=== PATIENT | female | born 1945 | race Caucasian/White ===

== ENCOUNTER 2020-06-16 11:52 | Inpatient (IN) ==
[2020-06-16] MEDS ORDERED: D5% in Water 1,000 ML IVC PRN (16:47)
[2020-06-16] MEDS ORDERED: *HR* Dextrose 50 % in Water (Vial) 50 ML VIAL IVP PRN (16:47)
[2020-06-16] MEDS ORDERED: Dextrose Gel 15 GM/37.5 ML TUBE PO PRN ×2 (16:47)
[2020-06-16] MEDS: Insulin LISPRO 300 UNITS/3 ML VIAL SQ SCH ×2 (17:37→21:25)
[2020-06-16] MEDS: *HR* Glimepiride 2 MG TABLET PO SCH (17:38)
[2020-06-16] MEDS: *HR* Warfarin 5 MG TABLET PO SCH (17:38)
[2020-06-16 19:22] LABS: Basophils # 0.1 K/mcL (0.0-0.2); Basophils % 0.9 %; Eosinophils # 0.2 K/mcL (0.0-0.6); Hematocrit 32.8 % (35.3-44.9); Hemoglobin 10.3 g/dL (11.5-15.4); Immature Granulocytes % 0.8 % (0-4); Lymphocytes # 2.1 K/mcL (0.6-4.6); Lymphocytes % 19.7 %; Mean Corpuscular HGB Conc 31.4 g/dL (31.6-35.5); Mean Corpuscular Hemoglobin 29.8 pg (28.0-33.3); Mean Corpuscular Volume 94.8 fL (83.0-100.0); Mean Platelet Volume 10.3 fL (9.4-12.4); Monocytes # 1.5 K/mcL (0.0-1.3); Monocytes % 14.6 %; Neutrophils # 6.5 K/mcL (1.6-8.9); Platelet Count 437 K/mcL (140-400); Red Blood Count 3.46 M/mcL (3.82-4.97); Red Cell Distribution Width 16.1 % (11.5-14.5); White Blood Count 10.5 K/mcL (4.3-11.1)
[2020-06-16] MEDS: Budesonide/Formoterol 80/4.5 1 PUFF INH IH SCH (19:32)
[2020-06-16 19:34] LABS: Alanine Aminotransferase 45 Units/L (7-52); Albumin 2.7 g/dL (3.5-5.7); Albumin/Globulin Ratio 0.8 (1.1-2.2); Alkaline Phosphatase 126 Units/L (34-104); Aspartate Amino Transferase 25 Units/L (13-39); BUN/Creatinine Ratio 29 (6-26); Bilirubin,Total 0.5 mg/dL (0.3-1.0); Blood Urea Nitrogen 30 mg/dL (8-23); Calcium 9.1 mg/dL (8.6-10.3); Carbon Dioxide 26 mEq/L (23-29); Chloride 100 mEq/L (98-107); Globulin 3.2 g/dL (2.4-3.5); Glucose 176 mg/dL (70-105); Osmolality,Calculated 286 (280-300); Potassium 4.9 mEq/L (3.5-5.1); Sodium 133 mEq/L (136-145); Total Protein 5.9 g/dL (6.4-8.9); eGFR For African Americans > 60 (> 60); eGFR For Non-African Americans 51 (> 60)
[2020-06-16] MEDS ORDERED: CIDER VINEGAR 300 MG PO SCH (21:00)
[2020-06-16] MEDS ORDERED: Insulin DETEMIR 100 UNIT/ML per UNIT SQ ONE (21:00)
[2020-06-16] MEDS: DilTIAZem CD (24hr) 120 MG CAP.ER.24H PO SCH (21:22)
[2020-06-16] MEDS: Doxycycline 100 MG CAPSULE PO SCH (21:22)
[2020-06-16] MEDS: Famotidine 20 MG TABLET PO SCH (21:23)
[2020-06-16] MEDS: Metoprolol XL (24 HR) Succ 25 MG TAB.ER.24H PO SCH (21:23)
[2020-06-16] MEDS: allopurinoL 100 MG TABLET PO SCH (21:24)
[2020-06-16] MEDS: Zinc Acetate [Galzin] 50 MG PO SCH (21:33)
[2020-06-17 06:00] LABS: Basophils # 0.1 K/mcL (0.0-0.2); Basophils % 1.3 %; Eosinophils # 0.2 K/mcL (0.0-0.6); Eosinophils % 2.1 %; Hematocrit 33.7 % (35.3-44.9); Hemoglobin 10.5 g/dL (11.5-15.4); Immature Granulocytes % 0.8 % (0-4); Lymphocytes # 2.5 K/mcL (0.6-4.6); Lymphocytes % 24.3 %; Mean Corpuscular HGB Conc 31.2 g/dL (31.6-35.5); Mean Corpuscular Hemoglobin 29.8 pg (28.0-33.3); Mean Corpuscular Volume 95.7 fL (83.0-100.0); Mean Platelet Volume 10.5 fL (9.4-12.4); Monocytes # 1.6 K/mcL (0.0-1.3); Neutrophils # 5.9 K/mcL (1.6-8.9); Platelet Count 488 K/mcL (140-400); Red Blood Count 3.52 M/mcL (3.82-4.97); Red Cell Distribution Width 16.2 % (11.5-14.5); Segmented Neutrophils % 56.5 %; White Blood Count 10.4 K/mcL (4.3-11.1)
[2020-06-17 06:14] LABS: INR 1.7; Prothrombin Time 19.5 Seconds (9.4-12.1)
[2020-06-17 06:17] LABS: Activated Partial Thrombo Time 38.5 Seconds (26.0-36.0)
[2020-06-17 06:24] LABS: BUN/Creatinine Ratio 30 (6-26); Blood Urea Nitrogen 26 mg/dL (8-23); Calcium 9.2 mg/dL (8.6-10.3); Carbon Dioxide 27 mEq/L (23-29); Chloride 102 mEq/L (98-107); Glucose 78 mg/dL (70-105); Osmolality,Calculated 284 (280-300); Potassium 4.6 mEq/L (3.5-5.1); Sodium 135 mEq/L (136-145); eGFR For African Americans > 60 (> 60); eGFR For Non-African Americans > 60 (> 60)
[2020-06-17 07:14] LABS: Bilirubin,Urine Negative (Negative); Blood,Urine Trace-intact (Negative); Clarity,Urine Clear (Clear); Color,Urine Yellow (Yellow); Glucose,Urine (UA) Normal (Normal); Ketones,Urine Negative (Negative); Leukocyte Esterase,Urine Negative (Negative); Nitrite,Urine Negative (Negative); Protein,Urine Negative (Neg-Trace); Urobilinogen,Urine Normal (Normal)
[2020-06-17 07:16] LABS: RBC,Urine 0-3 per hpf (0-3)
[2020-06-17 07:17] LABS: Squamous Epithelial Cell,Urine Few per hpf (None-Few); WBC,Urine 0-3 per hpf (0-3)
[2020-06-17] MEDS: Insulin LISPRO 300 UNITS/3 ML VIAL SQ SCH ×4 (08:21→21:24)
[2020-06-17] MEDS: *HR* Digoxin 0.125 MG TABLET PO SCH (08:22)
[2020-06-17] MEDS: DilTIAZem CD (24hr) 120 MG CAP.ER.24H PO SCH ×2 (08:22→20:07)
[2020-06-17] MEDS: allopurinoL 100 MG TABLET PO SCH ×2 (08:22→20:07)
[2020-06-17] MEDS: *HR* Glimepiride 2 MG TABLET PO SCH ×2 (08:22→17:54)
[2020-06-17] MEDS: Metoprolol XL (24 HR) Succ 25 MG TAB.ER.24H PO SCH ×2 (08:22→21:36)
[2020-06-17] MEDS: Cholecalciferol (D-3) 1,000 UNIT (25MCG) TABLET PO SCH (08:22)
[2020-06-17] MEDS: Doxycycline 100 MG CAPSULE PO SCH ×2 (08:22→20:07)
[2020-06-17] MEDS: Famotidine 20 MG TABLET PO SCH ×2 (08:22→20:07)
[2020-06-17] MEDS: Zinc Acetate [Galzin] 50 MG PO SCH ×2 (08:23→21:27)
[2020-06-17] MEDS: Liraglutide [Victoza 2-Pak] 1.2 MG SQ SCH (08:23)
[2020-06-17] MEDS: Budesonide/Formoterol 80/4.5 1 PUFF INH IH SCH ×2 (10:04→22:30)
[2020-06-17] MEDS: *HR* Warfarin 5 MG TABLET PO SCH (17:54)
[2020-06-17] MEDS: Insulin DETEMIR 100 UNIT/ML X5UNITS SQ SCH (21:27)
[2020-06-18] MEDS: Insulin LISPRO 300 UNITS/3 ML VIAL SQ SCH ×4 (08:52→22:05)
[2020-06-18] MEDS: *HR* Digoxin 0.125 MG TABLET PO SCH (09:47)
[2020-06-18] MEDS: Cholecalciferol (D-3) 1,000 UNIT (25MCG) TABLET PO SCH (09:47)
[2020-06-18] MEDS: Famotidine 20 MG TABLET PO SCH ×2 (09:47→22:06)
[2020-06-18] MEDS: allopurinoL 100 MG TABLET PO SCH ×2 (09:48→22:06)
[2020-06-18] MEDS: DilTIAZem CD (24hr) 120 MG CAP.ER.24H PO SCH ×2 (09:48→22:05)
[2020-06-18] MEDS: Budesonide/Formoterol 80/4.5 1 PUFF INH IH SCH ×2 (09:48→21:47)
[2020-06-18] MEDS: Liraglutide [Victoza 2-Pak] 1.2 MG SQ SCH (09:48)
[2020-06-18] MEDS: Doxycycline 100 MG CAPSULE PO SCH ×2 (09:48→22:05)
[2020-06-18] MEDS: Metoprolol XL (24 HR) Succ 25 MG TAB.ER.24H PO SCH ×2 (09:48→22:06)
[2020-06-18] MEDS: *HR* Glimepiride 2 MG TABLET PO SCH ×2 (09:48→17:12)
[2020-06-18] MEDS: Zinc Acetate [Galzin] 50 MG PO SCH ×2 (09:48→22:06)
[2020-06-18] MEDS: *HR* Warfarin 5 MG TABLET PO SCH (17:12)
[2020-06-18] MEDS: Insulin DETEMIR 100 UNIT/ML X5UNITS SQ SCH (22:05)
[2020-06-19 05:16] LABS: INR 3.1; Prothrombin Time 35.8 Seconds (9.4-12.1)
[2020-06-19] MEDS: Liraglutide [Victoza 2-Pak] 1.2 MG SQ SCH (07:35)
[2020-06-19] MEDS: *HR* Glimepiride 2 MG TABLET PO SCH ×2 (07:35→17:04)
[2020-06-19] MEDS: Zinc Acetate [Galzin] 50 MG PO SCH ×2 (07:35→19:55)
[2020-06-19] MEDS: Insulin LISPRO 300 UNITS/3 ML VIAL SQ SCH ×4 (07:35→19:54)
[2020-06-19] MEDS: DilTIAZem CD (24hr) 120 MG CAP.ER.24H PO SCH ×2 (09:34→19:54)
[2020-06-19] MEDS: Famotidine 20 MG TABLET PO SCH ×2 (09:34→19:53)
[2020-06-19] MEDS: *HR* Digoxin 0.125 MG TABLET PO SCH (09:34)
[2020-06-19] MEDS: Cholecalciferol (D-3) 1,000 UNIT (25MCG) TABLET PO SCH (09:34)
[2020-06-19] MEDS: Metoprolol XL (24 HR) Succ 25 MG TAB.ER.24H PO SCH ×2 (09:34→19:54)
[2020-06-19] MEDS: Budesonide/Formoterol 80/4.5 1 PUFF INH IH SCH ×2 (09:38→23:22)
[2020-06-19] MEDS: allopurinoL 100 MG TABLET PO SCH ×2 (09:40→19:54)
[2020-06-19] MEDS ORDERED: Warfarin perPT PO PRN (18:00)
[2020-06-19] MEDS: Insulin DETEMIR 100 UNIT/ML X5UNITS SQ SCH (19:59)
[2020-06-20 04:44] LABS: Basophils # 0.1 K/mcL (0.0-0.2); Basophils % 0.8 %; Eosinophils # 0.3 K/mcL (0.0-0.6); Eosinophils % 2.3 %; Hematocrit 34.1 % (35.3-44.9); Hemoglobin 10.5 g/dL (11.5-15.4); Immature Granulocytes % 0.5 % (0-4); Lymphocytes # 1.9 K/mcL (0.6-4.6); Lymphocytes % 17.3 %; Mean Corpuscular HGB Conc 30.8 g/dL (31.6-35.5); Mean Corpuscular Hemoglobin 29.5 pg (28.0-33.3); Mean Corpuscular Volume 95.8 fL (83.0-100.0); Mean Platelet Volume 9.9 fL (9.4-12.4); Monocytes # 1.7 K/mcL (0.0-1.3); Monocytes % 15.4 %; Platelet Count 480 K/mcL (140-400); Red Blood Count 3.56 M/mcL (3.82-4.97); Segmented Neutrophils % 63.7 %
[2020-06-20 04:49] LABS: Prothrombin Time 34.5 Seconds (9.4-12.1)
[2020-06-20 05:02] LABS: BUN/Creatinine Ratio 26 (6-26); Blood Urea Nitrogen 21 mg/dL (8-23); Carbon Dioxide 27 mEq/L (23-29); Chloride 103 mEq/L (98-107); Glucose 51 mg/dL (70-105); Osmolality,Calculated 282 (280-300); Potassium 4.5 mEq/L (3.5-5.1); Sodium 136 mEq/L (136-145); eGFR For African Americans > 60 (> 60); eGFR For Non-African Americans > 60 (> 60)
[2020-06-20] MEDS: allopurinoL 100 MG TABLET PO SCH ×2 (08:21→20:56)
[2020-06-20] MEDS: Zinc Acetate [Galzin] 50 MG PO SCH ×2 (08:21→22:36)
[2020-06-20] MEDS: Cholecalciferol (D-3) 1,000 UNIT (25MCG) TABLET PO SCH (08:21)
[2020-06-20] MEDS: *HR* Digoxin 0.125 MG TABLET PO SCH (08:21)
[2020-06-20] MEDS: Famotidine 20 MG TABLET PO SCH ×2 (08:21→20:55)
[2020-06-20] MEDS: *HR* Glimepiride 2 MG TABLET PO SCH ×2 (08:21→17:09)
[2020-06-20] MEDS: Insulin LISPRO 300 UNITS/3 ML VIAL SQ SCH ×4 (08:21→20:56)
[2020-06-20] MEDS: DilTIAZem CD (24hr) 120 MG CAP.ER.24H PO SCH ×2 (08:21→20:55)
[2020-06-20] MEDS: Liraglutide [Victoza 2-Pak] 1.2 MG SQ SCH (08:21)
[2020-06-20] MEDS: Metoprolol XL (24 HR) Succ 25 MG TAB.ER.24H PO SCH ×2 (08:21→20:55)
[2020-06-20] MEDS: Budesonide/Formoterol 80/4.5 1 PUFF INH IH SCH ×2 (10:07→20:58)
[2020-06-20] MEDS ORDERED: *HR* Warfarin 2 MG TABLET PO ONE (18:00)
[2020-06-20] MEDS ORDERED: *HR* Warfarin 2.5 MG TABLET PO SCH (18:00)
[2020-06-20] MEDS: Insulin DETEMIR 100 UNIT/ML X5UNITS SQ SCH (20:57)
[2020-06-21 04:39] LABS: INR 2.5; Prothrombin Time 28.2 Seconds (9.4-12.1)
[2020-06-21] MEDS: *HR* Digoxin 0.125 MG TABLET PO SCH (08:32)
[2020-06-21] MEDS: Metoprolol XL (24 HR) Succ 25 MG TAB.ER.24H PO SCH ×2 (08:32→22:45)
[2020-06-21] MEDS: Famotidine 20 MG TABLET PO SCH ×2 (08:32→22:45)
[2020-06-21] MEDS: Cholecalciferol (D-3) 1,000 UNIT (25MCG) TABLET PO SCH (08:33)
[2020-06-21] MEDS: DilTIAZem CD (24hr) 120 MG CAP.ER.24H PO SCH ×2 (08:33→22:45)
[2020-06-21] MEDS: *HR* Glimepiride 2 MG TABLET PO SCH ×2 (08:33→17:10)
[2020-06-21] MEDS: Zinc Acetate [Galzin] 50 MG PO SCH (08:33)
[2020-06-21] MEDS: allopurinoL 100 MG TABLET PO SCH ×2 (08:33→22:45)
[2020-06-21] MEDS: Liraglutide [Victoza 2-Pak] 1.2 MG SQ SCH (08:33)
[2020-06-21] MEDS: Insulin LISPRO 300 UNITS/3 ML VIAL SQ SCH ×4 (08:33→22:45)
[2020-06-21] MEDS: Budesonide/Formoterol 80/4.5 1 PUFF INH IH SCH ×2 (09:20→21:16)
[2020-06-21 16:53] LABS: Basophils # 0.1 K/mcL (0.0-0.2); Basophils % 0.5 %; Eosinophils # 0.1 K/mcL (0.0-0.6); Eosinophils % 0.9 %; Hemoglobin 11.1 g/dL (11.5-15.4); Immature Granulocytes % 0.7 % (0-4); Lymphocytes % 13.7 %; Mean Corpuscular HGB Conc 30.8 g/dL (31.6-35.5); Mean Corpuscular Hemoglobin 29.9 pg (28.0-33.3); Mean Platelet Volume 9.7 fL (9.4-12.4); Monocytes # 2.2 K/mcL (0.0-1.3); Monocytes % 15.2 %; Neutrophils # 10.1 K/mcL (1.6-8.9); Platelet Count 550 K/mcL (140-400); Red Blood Count 3.71 M/mcL (3.82-4.97); Red Cell Distribution Width 15.9 % (11.5-14.5); White Blood Count 14.6 K/mcL (4.3-11.1)
[2020-06-21 17:09] LABS: BUN/Creatinine Ratio 21 (6-26); Blood Urea Nitrogen 18 mg/dL (8-23); Calcium 8.9 mg/dL (8.6-10.3); Carbon Dioxide 30 mEq/L (23-29); Chloride 99 mEq/L (98-107); Glucose 177 mg/dL (70-105); Osmolality,Calculated 284 (280-300); Potassium 4.7 mEq/L (3.5-5.1); Sodium 134 mEq/L (136-145); eGFR For African Americans > 60 (> 60); eGFR For Non-African Americans > 60 (> 60)
[2020-06-21] MEDS ORDERED: *HR* Warfarin 5 MG TABLET PO ONE (18:00)
[2020-06-21 20:51] LABS: Bilirubin,Urine Negative (Negative); Blood,Urine Negative (Negative); Clarity,Urine Clear (Clear); Color,Urine Yellow (Yellow); Glucose,Urine (UA) Normal (Normal); Ketones,Urine Negative (Negative); Leukocyte Esterase,Urine Negative (Negative); Nitrite,Urine Negative (Negative); Protein,Urine 100 mg/dL (Neg-Trace); Specific Gravity,Urine 1.025 (1.010-1.025); Urobilinogen,Urine Normal (Normal)
[2020-06-21 20:59] LABS: Budding Yeast,Urine Moderate per hpf (None Seen); Hyaline Casts,Urine Few per lpf (None Seen); RBC,Urine 0-3 per hpf (0-3); Squamous Epithelial Cell,Urine Few per hpf (None-Few)
[2020-06-21] MEDS: Insulin DETEMIR 100 UNIT/ML X5UNITS SQ SCH (22:45)
[2020-06-21] MEDS: Doxycycline 100 MG CAPSULE PO SCH (22:45)
[2020-06-22] MEDS: Zinc Acetate [Galzin] 50 MG PO SCH ×3 (01:18→22:17)
[2020-06-22 06:13] LABS: Basophils # 0.1 K/mcL (0.0-0.2); Basophils % 0.5 %; Eosinophils # 0.1 K/mcL (0.0-0.6); Eosinophils % 0.5 %; Hematocrit 33.1 % (35.3-44.9); Hemoglobin 10.2 g/dL (11.5-15.4); Immature Granulocytes % 0.8 % (0-4); Lymphocytes % 13.6 %; Mean Corpuscular HGB Conc 30.8 g/dL (31.6-35.5); Mean Corpuscular Hemoglobin 29.5 pg (28.0-33.3); Mean Corpuscular Volume 95.7 fL (83.0-100.0); Mean Platelet Volume 9.9 fL (9.4-12.4); Monocytes # 2.2 K/mcL (0.0-1.3); Platelet Count 507 K/mcL (140-400); Red Blood Count 3.46 M/mcL (3.82-4.97); Red Cell Distribution Width 15.9 % (11.5-14.5); Segmented Neutrophils % 69.6 %; White Blood Count 14.9 K/mcL (4.3-11.1)
[2020-06-22 06:14] LABS: Neutrophils # 10.4 K/mcL (1.6-8.9)
[2020-06-22 06:15] LABS: Prothrombin Time 23.1 Seconds (9.4-12.1)
[2020-06-22] MEDS: Insulin LISPRO 300 UNITS/3 ML VIAL SQ SCH ×4 (07:55→22:05)
[2020-06-22] MEDS: DilTIAZem CD (24hr) 120 MG CAP.ER.24H PO SCH ×2 (08:35→22:04)
[2020-06-22] MEDS: Doxycycline 100 MG CAPSULE PO SCH (08:35)
[2020-06-22] MEDS: Famotidine 20 MG TABLET PO SCH ×2 (08:35→22:04)
[2020-06-22] MEDS: Liraglutide [Victoza 2-Pak] 1.2 MG SQ SCH (08:35)
[2020-06-22] MEDS: Cholecalciferol (D-3) 1,000 UNIT (25MCG) TABLET PO SCH (08:35)
[2020-06-22] MEDS: Metoprolol XL (24 HR) Succ 25 MG TAB.ER.24H PO SCH ×2 (08:35→22:04)
[2020-06-22] MEDS: allopurinoL 100 MG TABLET PO SCH ×2 (08:35→22:04)
[2020-06-22] MEDS: *HR* Digoxin 0.125 MG TABLET PO SCH (08:36)
[2020-06-22] MEDS: *HR* Glimepiride 2 MG TABLET PO SCH ×2 (08:36→17:21)
[2020-06-22] MEDS: Budesonide/Formoterol 80/4.5 1 PUFF INH IH SCH ×2 (10:10→21:45)
[2020-06-22] MEDS: Acetaminophen 325 MG TABLET PO PRN ×2 (15:17→22:09)
[2020-06-22] MEDS: Ipratropium/Albuterol Neb 3 ML IH SCH ×2 (16:17→21:45)
[2020-06-22] MEDS ORDERED: *HR* Warfarin 3 MG TABLET PO ONE (18:00)
[2020-06-22] MEDS: 0.9 % Sodium Chloride 1,000 ML IVC SCH (18:03)
[2020-06-22] MEDS: Doxycycline 100 MG in 0.9 % Sodium Chloride Mini Bag 100 ML IVPB SCH (18:03)
[2020-06-22] MEDS: levoFLOXacin 750 MG/150 ML 750 MG/150 ML BAG IVPB SCH (19:34)
[2020-06-22] MEDS: Insulin DETEMIR 100 UNIT/ML X5UNITS SQ SCH (22:05)
[2020-06-23] MEDS: Ipratropium/Albuterol Neb 3 ML IH SCH ×4 (03:58→21:32)
[2020-06-23] MEDS: 0.9 % Sodium Chloride 1,000 ML IVC SCH ×2 (04:06→16:36)
[2020-06-23] MEDS: Doxycycline 100 MG in 0.9 % Sodium Chloride Mini Bag 100 ML IVPB SCH ×2 (05:09→17:29)
[2020-06-23 06:16] LABS: Hematocrit 32.3 % (35.3-44.9); Mean Corpuscular Hemoglobin 29.9 pg (28.0-33.3); Mean Corpuscular Volume 96.4 fL (83.0-100.0); Mean Platelet Volume 9.9 fL (9.4-12.4); Platelet Count 478 K/mcL (140-400); Red Blood Count 3.35 M/mcL (3.82-4.97); Red Cell Distribution Width 15.8 % (11.5-14.5)
[2020-06-23 06:22] LABS: INR 2.2; Prothrombin Time 25.4 Seconds (9.4-12.1)
[2020-06-23 06:33] LABS: Alanine Aminotransferase 19 Units/L (7-52); Albumin 2.6 g/dL (3.5-5.7); Albumin/Globulin Ratio 0.8 (1.1-2.2); Alkaline Phosphatase 112 Units/L (34-104); Aspartate Amino Transferase 11 Units/L (13-39); BUN/Creatinine Ratio 23 (6-26); Bilirubin,Total 0.4 mg/dL (0.3-1.0); Blood Urea Nitrogen 20 mg/dL (8-23); Calcium 8.9 mg/dL (8.6-10.3); Carbon Dioxide 28 mEq/L (23-29); Chloride 101 mEq/L (98-107); Globulin 3.2 g/dL (2.4-3.5); Glucose 46 mg/dL (70-105); Magnesium 1.5 mg/dL (1.6-2.6); Osmolality,Calculated 280 (280-300); Potassium 4.3 mEq/L (3.5-5.1); Sodium 135 mEq/L (136-145); Total Protein 5.8 g/dL (6.4-8.9); eGFR For African Americans > 60 (> 60); eGFR For Non-African Americans > 60 (> 60)
[2020-06-23] MEDS: Insulin LISPRO 300 UNITS/3 ML VIAL SQ SCH ×4 (07:30→20:09)
[2020-06-23] MEDS: *HR* Glimepiride 2 MG TABLET PO SCH ×2 (07:31→17:10)
[2020-06-23] MEDS: Liraglutide [Victoza 2-Pak] 1.2 MG SQ SCH (08:22)
[2020-06-23] MEDS: Zinc Acetate [Galzin] 50 MG PO SCH ×2 (08:22→20:11)
[2020-06-23] MEDS: Metoprolol XL (24 HR) Succ 25 MG TAB.ER.24H PO SCH ×2 (08:27→20:10)
[2020-06-23] MEDS: Famotidine 20 MG TABLET PO SCH ×2 (08:27→20:10)
[2020-06-23] MEDS: allopurinoL 100 MG TABLET PO SCH ×2 (08:27→20:10)
[2020-06-23] MEDS: DilTIAZem CD (24hr) 120 MG CAP.ER.24H PO SCH ×2 (08:28→20:10)
[2020-06-23] MEDS: Cholecalciferol (D-3) 1,000 UNIT (25MCG) TABLET PO SCH (08:28)
[2020-06-23] MEDS: *HR* Digoxin 0.125 MG TABLET PO SCH (08:28)
[2020-06-23] MEDS ORDERED: Fluconazole 100 MG TABLET PO SCH (09:00)
[2020-06-23] MEDS: Acetaminophen 325 MG TABLET PO PRN (09:14)
[2020-06-23] MEDS: Fluconazole 200 MG/100 ML 100 MG/50 ML BAG IVPB SCH (09:17)
[2020-06-23] MEDS: Budesonide/Formoterol 80/4.5 1 PUFF INH IH SCH ×2 (10:05→21:32)
[2020-06-23] MEDS ORDERED: 0.9 % Sodium Chloride 1,000 ML IVC SCH (16:22)
[2020-06-23] MEDS ORDERED: *HR* Warfarin 1 MG TABLET PO ONE (18:00)
[2020-06-23] MEDS: levoFLOXacin 750 MG/150 ML 750 MG/150 ML BAG IVPB SCH (18:50)
[2020-06-23] MEDS ORDERED: Insulin DETEMIR 100 UNIT/ML per UNIT SQ SCH (21:00)
[2020-06-24] MEDS: Ipratropium/Albuterol Neb 3 ML IH SCH ×4 (03:58→22:54)
[2020-06-24] MEDS: Doxycycline 100 MG in 0.9 % Sodium Chloride Mini Bag 100 ML IVPB SCH ×2 (05:22→17:40)
[2020-06-24] MEDS: Insulin LISPRO 300 UNITS/3 ML VIAL SQ SCH ×4 (07:44→20:26)
[2020-06-24] MEDS: Liraglutide [Victoza 2-Pak] 1.2 MG SQ SCH (08:38)
[2020-06-24] MEDS: Zinc Acetate [Galzin] 50 MG PO SCH ×2 (08:38→22:19)
[2020-06-24] MEDS: DilTIAZem CD (24hr) 120 MG CAP.ER.24H PO SCH ×2 (08:46→20:28)
[2020-06-24] MEDS: Cholecalciferol (D-3) 1,000 UNIT (25MCG) TABLET PO SCH (08:46)
[2020-06-24] MEDS: Famotidine 20 MG TABLET PO SCH ×2 (08:46→20:28)
[2020-06-24] MEDS: allopurinoL 100 MG TABLET PO SCH ×2 (08:46→20:29)
[2020-06-24] MEDS: Metoprolol XL (24 HR) Succ 25 MG TAB.ER.24H PO SCH ×2 (08:46→20:29)
[2020-06-24] MEDS: *HR* Digoxin 0.125 MG TABLET PO SCH (08:46)
[2020-06-24] MEDS: Fluconazole 200 MG/100 ML 100 MG/50 ML BAG IVPB SCH (08:47)
[2020-06-24] MEDS: Budesonide/Formoterol 80/4.5 1 PUFF INH IH SCH ×2 (10:23→22:54)
[2020-06-24 10:34] LABS: Hematocrit 31.7 % (35.3-44.9); Hemoglobin 9.8 g/dL (11.5-15.4); Mean Corpuscular HGB Conc 30.9 g/dL (31.6-35.5); Mean Corpuscular Hemoglobin 29.7 pg (28.0-33.3); Mean Corpuscular Volume 96.1 fL (83.0-100.0); Mean Platelet Volume 9.1 fL (9.4-12.4); Platelet Count 418 K/mcL (140-400); Red Cell Distribution Width 15.8 % (11.5-14.5); White Blood Count 8.1 K/mcL (4.3-11.1)
[2020-06-24 10:47] LABS: BUN/Creatinine Ratio 25 (6-26); Blood Urea Nitrogen 22 mg/dL (8-23); Calcium 8.7 mg/dL (8.6-10.3); Carbon Dioxide 28 mEq/L (23-29); Chloride 100 mEq/L (98-107); Glucose 87 mg/dL (70-105); Magnesium 1.6 mg/dL (1.6-2.6); Osmolality,Calculated 281 (280-300); Potassium 4.7 mEq/L (3.5-5.1); Sodium 134 mEq/L (136-145); eGFR For African Americans > 60 (> 60); eGFR For Non-African Americans > 60 (> 60)
[2020-06-24 11:04] LABS: INR 2.6; Prothrombin Time 29.4 Seconds (9.4-12.1)
[2020-06-24] MEDS ORDERED: *HR* Warfarin 2 MG TABLET PO ONE (18:00)
[2020-06-24] MEDS: levoFLOXacin 750 MG/150 ML 750 MG/150 ML BAG IVPB SCH (18:42)
[2020-06-24] MEDS: Insulin DETEMIR 100 UNIT/ML X5UNITS SQ SCH (21:11)
[2020-06-25 05:38] LABS: INR 2.4; Prothrombin Time 27.1 Seconds (9.4-12.1)
[2020-06-25] MEDS: Doxycycline 100 MG in 0.9 % Sodium Chloride Mini Bag 100 ML IVPB SCH (06:43)
[2020-06-25] MEDS: Ipratropium/Albuterol Neb 3 ML IH SCH ×4 (06:43→22:18)
[2020-06-25] MEDS: DilTIAZem CD (24hr) 120 MG CAP.ER.24H PO SCH ×2 (07:58→21:32)
[2020-06-25] MEDS: Cholecalciferol (D-3) 1,000 UNIT (25MCG) TABLET PO SCH (07:58)
[2020-06-25] MEDS: Famotidine 20 MG TABLET PO SCH ×2 (07:58→21:31)
[2020-06-25] MEDS: allopurinoL 100 MG TABLET PO SCH ×2 (07:58→21:31)
[2020-06-25] MEDS: Metoprolol XL (24 HR) Succ 25 MG TAB.ER.24H PO SCH ×2 (07:58→21:31)
[2020-06-25] MEDS: Liraglutide [Victoza 2-Pak] 1.2 MG SQ SCH (07:59)
[2020-06-25] MEDS: *HR* Digoxin 0.125 MG TABLET PO SCH (07:59)
[2020-06-25] MEDS: Zinc Acetate [Galzin] 50 MG PO SCH ×2 (07:59→21:44)
[2020-06-25] MEDS: Insulin LISPRO 300 UNITS/3 ML VIAL SQ SCH ×4 (07:59→21:33)
[2020-06-25] MEDS: Budesonide/Formoterol 80/4.5 1 PUFF INH IH SCH ×2 (08:58→22:18)
[2020-06-25] MEDS: Fluconazole 200 MG/100 ML 100 MG/50 ML BAG IVPB SCH (09:31)
[2020-06-25] MEDS: levoFLOXacin 750 MG TABLET PO SCH (17:15)
[2020-06-25] MEDS ORDERED: *HR* Warfarin 3 MG TABLET PO ONE (18:00)
[2020-06-25] MEDS: Doxycycline 100 MG CAPSULE PO SCH (21:30)
[2020-06-25] MEDS: Insulin DETEMIR 100 UNIT/ML X5UNITS SQ SCH (21:44)
[2020-06-26 05:27] LABS: INR 2.5; Prothrombin Time 28.1 Seconds (9.4-12.1)
[2020-06-26] MEDS: Ipratropium/Albuterol Neb 3 ML IH SCH ×4 (05:32→21:40)
[2020-06-26] MEDS: Budesonide/Formoterol 80/4.5 1 PUFF INH IH SCH ×2 (07:43→21:39)
[2020-06-26] MEDS: Insulin LISPRO 300 UNITS/3 ML VIAL SQ SCH ×4 (08:25→21:26)
[2020-06-26] MEDS: DilTIAZem CD (24hr) 120 MG CAP.ER.24H PO SCH ×2 (08:28→21:20)
[2020-06-26] MEDS: *HR* Digoxin 0.125 MG TABLET PO SCH (08:28)
[2020-06-26] MEDS: Doxycycline 100 MG CAPSULE PO SCH ×2 (08:28→21:20)
[2020-06-26] MEDS: Liraglutide [Victoza 2-Pak] 1.2 MG SQ SCH (08:28)
[2020-06-26] MEDS: Famotidine 20 MG TABLET PO SCH ×2 (08:28→21:19)
[2020-06-26] MEDS: allopurinoL 100 MG TABLET PO SCH ×2 (08:28→21:21)
[2020-06-26] MEDS: Fluconazole 200 MG/100 ML 100 MG/50 ML BAG IVPB SCH (08:28)
[2020-06-26] MEDS: Zinc Acetate [Galzin] 50 MG PO SCH ×2 (08:28→21:29)
[2020-06-26] MEDS: Metoprolol XL (24 HR) Succ 25 MG TAB.ER.24H PO SCH ×2 (08:28→21:20)
[2020-06-26] MEDS: Cholecalciferol (D-3) 1,000 UNIT (25MCG) TABLET PO SCH (08:28)
[2020-06-26] MEDS ORDERED: Bisacodyl 10 MG RECTAL SUPPOSITORY RC PRN (11:44)
[2020-06-26] MEDS ORDERED: Lactulose Oral Soln 20 GM/30 ML UDC PO PRN (11:44)
[2020-06-26] MEDS: polyethylene glycoL 3350 17 GM POWD.PACK PO SCH (12:19)
[2020-06-26] MEDS: Sennosides/Docusate Sodium TABLET PO SCH ×2 (12:19→21:20)
[2020-06-26] MEDS: levoFLOXacin 750 MG TABLET PO SCH (16:42)
[2020-06-26] MEDS ORDERED: *HR* Warfarin 3 MG TABLET PO ONE (18:00)
[2020-06-26] MEDS: Insulin DETEMIR 100 UNIT/ML X5UNITS SQ SCH (21:25)
[2020-06-27] MEDS: Ipratropium/Albuterol Neb 3 ML IH SCH ×4 (05:14→22:53)
[2020-06-27 06:13] LABS: Hemoglobin 10.2 g/dL (11.5-15.4); Mean Corpuscular HGB Conc 30.9 g/dL (31.6-35.5); Mean Corpuscular Hemoglobin 29.3 pg (28.0-33.3); Mean Corpuscular Volume 94.8 fL (83.0-100.0); Mean Platelet Volume 9.6 fL (9.4-12.4); Platelet Count 349 K/mcL (140-400); Red Blood Count 3.48 M/mcL (3.82-4.97); Red Cell Distribution Width 15.6 % (11.5-14.5); White Blood Count 6.9 K/mcL (4.3-11.1)
[2020-06-27 06:16] LABS: INR 2.5; Prothrombin Time 28.3 Seconds (9.4-12.1)
[2020-06-27 06:32] LABS: Alanine Aminotransferase 21 Units/L (7-52); Albumin 2.6 g/dL (3.5-5.7); Albumin/Globulin Ratio 0.9 (1.1-2.2); Alkaline Phosphatase 112 Units/L (34-104); Aspartate Amino Transferase 22 Units/L (13-39); BUN/Creatinine Ratio 39 (6-26); Bilirubin,Total 0.3 mg/dL (0.3-1.0); Blood Urea Nitrogen 28 mg/dL (8-23); Calcium 8.8 mg/dL (8.6-10.3); Carbon Dioxide 28 mEq/L (23-29); Chloride 100 mEq/L (98-107); Globulin 2.9 g/dL (2.4-3.5); Glucose 105 mg/dL (70-105); Magnesium 1.5 mg/dL (1.6-2.6); Osmolality,Calculated 284 (280-300); Potassium 4.5 mEq/L (3.5-5.1); Sodium 134 mEq/L (136-145); Total Protein 5.5 g/dL (6.4-8.9); eGFR For African Americans > 60 (> 60); eGFR For Non-African Americans > 60 (> 60)
[2020-06-27] MEDS: Insulin LISPRO 300 UNITS/3 ML VIAL SQ SCH ×4 (08:05→20:41)
[2020-06-27] MEDS: Liraglutide [Victoza 2-Pak] 1.2 MG SQ SCH (08:49)
[2020-06-27] MEDS: Zinc Acetate [Galzin] 50 MG PO SCH ×2 (08:49→22:12)
[2020-06-27] MEDS: DilTIAZem CD (24hr) 120 MG CAP.ER.24H PO SCH ×2 (08:58→20:40)
[2020-06-27] MEDS: polyethylene glycoL 3350 17 GM POWD.PACK PO SCH (08:58)
[2020-06-27] MEDS: Sennosides/Docusate Sodium TABLET PO SCH (08:58)
[2020-06-27] MEDS: Cholecalciferol (D-3) 1,000 UNIT (25MCG) TABLET PO SCH (08:59)
[2020-06-27] MEDS: Famotidine 20 MG TABLET PO SCH ×2 (08:59→20:40)
[2020-06-27] MEDS: Metoprolol XL (24 HR) Succ 25 MG TAB.ER.24H PO SCH ×2 (08:59→20:41)
[2020-06-27] MEDS: *HR* Digoxin 0.125 MG TABLET PO SCH (08:59)
[2020-06-27] MEDS: Fluconazole 100 MG TABLET PO SCH (08:59)
[2020-06-27] MEDS: Doxycycline 100 MG CAPSULE PO SCH ×2 (08:59→20:40)
[2020-06-27] MEDS: Budesonide/Formoterol 80/4.5 1 PUFF INH IH SCH ×2 (08:59→22:54)
[2020-06-27] MEDS: allopurinoL 100 MG TABLET PO SCH ×2 (08:59→20:41)
[2020-06-27] MEDS: Magnesium Oxide 400 MG TABLET PO SCH ×2 (10:44→20:41)
[2020-06-27] MEDS: levoFLOXacin 750 MG TABLET PO SCH (17:28)
[2020-06-27] MEDS ORDERED: Sennosides/Docusate Sodium TABLET PO PRN (17:46)
[2020-06-27] MEDS ORDERED: *HR* Warfarin 2.5 MG TABLET PO ONE (18:00)
[2020-06-27] MEDS: Insulin DETEMIR 100 UNIT/ML X5UNITS SQ SCH (20:41)
[2020-06-28] MEDS: Ipratropium/Albuterol Neb 3 ML IH SCH ×4 (02:42→21:29)
[2020-06-28 05:13] LABS: INR 3.4; Prothrombin Time 38.6 Seconds (9.4-12.1)
[2020-06-28] MEDS: Insulin LISPRO 300 UNITS/3 ML VIAL SQ SCH ×4 (07:52→20:39)
[2020-06-28] MEDS: Budesonide/Formoterol 80/4.5 1 PUFF INH IH SCH ×2 (09:52→21:29)
[2020-06-28] MEDS: DilTIAZem CD (24hr) 120 MG CAP.ER.24H PO SCH ×2 (10:02→18:42)
[2020-06-28] MEDS: Doxycycline 100 MG CAPSULE PO SCH ×2 (10:03→20:39)
[2020-06-28] MEDS: Metoprolol XL (24 HR) Succ 25 MG TAB.ER.24H PO SCH ×2 (10:03→20:39)
[2020-06-28] MEDS: Zinc Acetate [Galzin] 50 MG PO SCH ×2 (10:03→20:40)
[2020-06-28] MEDS: Magnesium Oxide 400 MG TABLET PO SCH ×2 (10:03→20:38)
[2020-06-28] MEDS: polyethylene glycoL 3350 17 GM POWD.PACK PO SCH (10:03)
[2020-06-28] MEDS: Fluconazole 100 MG TABLET PO SCH (10:03)
[2020-06-28] MEDS: *HR* Digoxin 0.125 MG TABLET PO SCH (10:03)
[2020-06-28] MEDS: Cholecalciferol (D-3) 1,000 UNIT (25MCG) TABLET PO SCH (10:03)
[2020-06-28] MEDS: allopurinoL 100 MG TABLET PO SCH ×2 (10:03→20:39)
[2020-06-28] MEDS: Liraglutide [Victoza 2-Pak] 1.2 MG SQ SCH (10:03)
[2020-06-28] MEDS: Famotidine 20 MG TABLET PO SCH ×2 (10:04→20:39)
[2020-06-28] MEDS: levoFLOXacin 750 MG TABLET PO SCH (17:40)
[2020-06-28] MEDS ORDERED: *HR* Warfarin 1 MG TABLET PO ONE (18:00)
[2020-06-28] MEDS: Insulin DETEMIR 100 UNIT/ML X5UNITS SQ SCH (20:39)
[2020-06-28] MEDS: Acetaminophen 325 MG TABLET PO PRN (22:22)
[2020-06-29] MEDS: Ipratropium/Albuterol Neb 3 ML IH SCH ×4 (04:05→21:39)
[2020-06-29 05:36] LABS: INR 3.3; Prothrombin Time 37.6 Seconds (9.4-12.1)
[2020-06-29] MEDS: Insulin LISPRO 300 UNITS/3 ML VIAL SQ SCH ×4 (07:28→21:20)
[2020-06-29] MEDS: Liraglutide [Victoza 2-Pak] 1.2 MG SQ SCH (08:58)
[2020-06-29] MEDS: Zinc Acetate [Galzin] 50 MG PO SCH ×2 (08:58→21:20)
[2020-06-29] MEDS: polyethylene glycoL 3350 17 GM POWD.PACK PO SCH (08:59)
[2020-06-29] MEDS: Famotidine 20 MG TABLET PO SCH ×2 (09:15→21:19)
[2020-06-29] MEDS: Cholecalciferol (D-3) 1,000 UNIT (25MCG) TABLET PO SCH (09:15)
[2020-06-29] MEDS: allopurinoL 100 MG TABLET PO SCH ×2 (09:15→21:19)
[2020-06-29] MEDS: DilTIAZem CD (24hr) 120 MG CAP.ER.24H PO SCH ×2 (09:15→21:19)
[2020-06-29] MEDS: Magnesium Oxide 400 MG TABLET PO SCH ×2 (09:15→21:19)
[2020-06-29] MEDS: Doxycycline 100 MG CAPSULE PO SCH ×2 (09:15→21:19)
[2020-06-29] MEDS: Fluconazole 100 MG TABLET PO SCH (09:15)
[2020-06-29] MEDS: Metoprolol XL (24 HR) Succ 25 MG TAB.ER.24H PO SCH ×2 (09:15→21:19)
[2020-06-29] MEDS: *HR* Digoxin 0.125 MG TABLET PO SCH (09:16)
[2020-06-29] MEDS: Budesonide/Formoterol 80/4.5 1 PUFF INH IH SCH ×2 (09:44→21:39)
[2020-06-29] MEDS: levoFLOXacin 750 MG TABLET PO SCH (16:07)
[2020-06-29] MEDS ORDERED: *HR* Warfarin 2 MG TABLET PO ONE (18:00)
[2020-06-29] MEDS: Acetaminophen 325 MG TABLET PO PRN (21:19)
[2020-06-29] MEDS: Insulin DETEMIR 100 UNIT/ML X5UNITS SQ SCH (21:20)
[2020-06-30] MEDS: Ipratropium/Albuterol Neb 3 ML IH SCH ×4 (04:05→21:48)
[2020-06-30 05:45] LABS: Prothrombin Time 34.6 Seconds (9.4-12.1)
[2020-06-30] MEDS: Insulin LISPRO 300 UNITS/3 ML VIAL SQ SCH ×4 (08:25→20:18)
[2020-06-30] MEDS: Zinc Acetate [Galzin] 50 MG PO SCH ×2 (08:26→20:32)
[2020-06-30] MEDS: Cholecalciferol (D-3) 1,000 UNIT (25MCG) TABLET PO SCH (08:31)
[2020-06-30] MEDS: Doxycycline 100 MG CAPSULE PO SCH ×2 (08:31→20:28)
[2020-06-30] MEDS: Famotidine 20 MG TABLET PO SCH ×2 (08:31→20:29)
[2020-06-30] MEDS: allopurinoL 100 MG TABLET PO SCH ×2 (08:31→20:29)
[2020-06-30] MEDS: Magnesium Oxide 400 MG TABLET PO SCH ×2 (08:32→20:29)
[2020-06-30] MEDS: Liraglutide [Victoza 2-Pak] 1.2 MG SQ SCH (08:32)
[2020-06-30] MEDS: *HR* Digoxin 0.125 MG TABLET PO SCH (08:32)
[2020-06-30] MEDS: Metoprolol XL (24 HR) Succ 25 MG TAB.ER.24H PO SCH ×2 (08:32→20:29)
[2020-06-30] MEDS: DilTIAZem CD (24hr) 120 MG CAP.ER.24H PO SCH ×2 (08:32→20:29)
[2020-06-30] MEDS: polyethylene glycoL 3350 17 GM POWD.PACK PO SCH (08:32)
[2020-06-30] MEDS: Budesonide/Formoterol 80/4.5 1 PUFF INH IH SCH ×2 (10:26→21:48)
[2020-06-30] MEDS: levoFLOXacin 750 MG TABLET PO SCH (17:54)
[2020-06-30] MEDS ORDERED: *HR* Warfarin 1 MG TABLET PO ONE (18:00)
[2020-06-30] MEDS: Acetaminophen 325 MG TABLET PO PRN (20:28)
[2020-06-30] MEDS: Insulin DETEMIR 100 UNIT/ML X5UNITS SQ SCH (20:30)
[2020-07-01] MEDS: Acetaminophen 325 MG TABLET PO PRN ×3 (03:44→17:33)
[2020-07-01] MEDS: Ipratropium/Albuterol Neb 3 ML IH SCH ×4 (03:45→22:11)
[2020-07-01 05:36] LABS: INR 3.5; Prothrombin Time 39.8 Seconds (9.4-12.1)
[2020-07-01] MEDS: Insulin LISPRO 300 UNITS/3 ML VIAL SQ SCH ×4 (07:33→23:55)
[2020-07-01] MEDS: Budesonide/Formoterol 80/4.5 1 PUFF INH IH SCH ×2 (08:51→22:11)
[2020-07-01] MEDS: Magnesium Oxide 400 MG TABLET PO SCH ×2 (09:26→21:05)
[2020-07-01] MEDS: Metoprolol XL (24 HR) Succ 25 MG TAB.ER.24H PO SCH ×2 (09:27→21:06)
[2020-07-01] MEDS: allopurinoL 100 MG TABLET PO SCH ×2 (09:27→21:05)
[2020-07-01] MEDS: *HR* Digoxin 0.125 MG TABLET PO SCH (09:27)
[2020-07-01] MEDS: DilTIAZem CD (24hr) 120 MG CAP.ER.24H PO SCH ×2 (09:27→21:06)
[2020-07-01] MEDS: Cholecalciferol (D-3) 1,000 UNIT (25MCG) TABLET PO SCH (09:27)
[2020-07-01] MEDS: Doxycycline 100 MG CAPSULE PO SCH ×2 (09:27→21:05)
[2020-07-01] MEDS: Famotidine 20 MG TABLET PO SCH ×2 (09:27→21:05)
[2020-07-01] MEDS: polyethylene glycoL 3350 17 GM POWD.PACK PO SCH (09:28)
[2020-07-01] MEDS: Zinc Acetate [Galzin] 50 MG PO SCH ×2 (09:33→23:56)
[2020-07-01] MEDS: Liraglutide [Victoza 2-Pak] 1.2 MG SQ SCH (09:33)
[2020-07-01] MEDS: levoFLOXacin 750 MG TABLET PO SCH (17:28)
[2020-07-01] MEDS: Insulin DETEMIR 100 UNIT/ML X5UNITS SQ SCH (21:07)
[2020-07-02] MEDS: Ipratropium/Albuterol Neb 3 ML IH SCH ×4 (05:17→22:39)
[2020-07-02] MEDS: Acetaminophen 325 MG TABLET PO PRN ×2 (05:54→13:58)
[2020-07-02 06:14] LABS: Hematocrit 35.6 % (35.3-44.9); Hemoglobin 10.9 g/dL (11.5-15.4); Mean Corpuscular HGB Conc 30.6 g/dL (31.6-35.5); Mean Corpuscular Hemoglobin 29.2 pg (28.0-33.3); Mean Corpuscular Volume 95.4 fL (83.0-100.0); Mean Platelet Volume 9.4 fL (9.4-12.4); Platelet Count 303 K/mcL (140-400); Red Blood Count 3.73 M/mcL (3.82-4.97); Red Cell Distribution Width 15.6 % (11.5-14.5); White Blood Count 7.9 K/mcL (4.3-11.1)
[2020-07-02 06:17] LABS: INR 2.8; Prothrombin Time 31.3 Seconds (9.4-12.1)
[2020-07-02 06:30] LABS: Alanine Aminotransferase 13 Units/L (7-52); Albumin 2.9 g/dL (3.5-5.7); Alkaline Phosphatase 122 Units/L (34-104); Aspartate Amino Transferase 17 Units/L (13-39); BUN/Creatinine Ratio 42 (6-26); Bilirubin,Total 0.3 mg/dL (0.3-1.0); Blood Urea Nitrogen 32 mg/dL (8-23); Calcium 9.3 mg/dL (8.6-10.3); Carbon Dioxide 27 mEq/L (23-29); Chloride 98 mEq/L (98-107); Globulin 2.9 g/dL (2.4-3.5); Glucose 117 mg/dL (70-105); Magnesium 1.6 mg/dL (1.6-2.6); Osmolality,Calculated 284 (280-300); Potassium 4.4 mEq/L (3.5-5.1); Sodium 133 mEq/L (136-145); Total Protein 5.8 g/dL (6.4-8.9); eGFR For African Americans > 60 (> 60); eGFR For Non-African Americans > 60 (> 60)
[2020-07-02] MEDS: Insulin LISPRO 300 UNITS/3 ML VIAL SQ SCH ×4 (08:00→21:04)
[2020-07-02] MEDS: allopurinoL 100 MG TABLET PO SCH ×2 (08:42→21:03)
[2020-07-02] MEDS: Metoprolol XL (24 HR) Succ 25 MG TAB.ER.24H PO SCH ×2 (08:42→21:03)
[2020-07-02] MEDS: DilTIAZem CD (24hr) 120 MG CAP.ER.24H PO SCH ×2 (08:42→21:03)
[2020-07-02] MEDS: Magnesium Oxide 400 MG TABLET PO SCH ×2 (08:42→21:03)
[2020-07-02] MEDS: *HR* Digoxin 0.125 MG TABLET PO SCH (08:42)
[2020-07-02] MEDS: Famotidine 20 MG TABLET PO SCH ×2 (08:42→21:03)
[2020-07-02] MEDS: polyethylene glycoL 3350 17 GM POWD.PACK PO SCH (08:42)
[2020-07-02] MEDS: Cholecalciferol (D-3) 1,000 UNIT (25MCG) TABLET PO SCH (08:43)
[2020-07-02] MEDS: Zinc Acetate [Galzin] 50 MG PO SCH ×2 (08:43→21:05)
[2020-07-02] MEDS: Liraglutide [Victoza 2-Pak] 1.2 MG SQ SCH (08:43)
[2020-07-02] MEDS: Budesonide/Formoterol 80/4.5 1 PUFF INH IH SCH ×2 (10:01→22:39)
[2020-07-02] MEDS: levoFLOXacin 750 MG TABLET PO SCH (17:31)
[2020-07-02] MEDS ORDERED: *HR* Warfarin 1 MG TABLET PO ONE (18:00)
[2020-07-02] MEDS: Insulin DETEMIR 100 UNIT/ML X5UNITS SQ SCH (21:05)
[2020-07-03] MEDS: Acetaminophen 325 MG TABLET PO PRN ×3 (01:00→18:43)
[2020-07-03] MEDS: Ipratropium/Albuterol Neb 3 ML IH SCH ×4 (04:45→22:26)
[2020-07-03 05:37] LABS: INR 2.4; Prothrombin Time 27.8 Seconds (9.4-12.1)
[2020-07-03] MEDS: Insulin LISPRO 300 UNITS/3 ML VIAL SQ SCH ×4 (08:20→19:56)
[2020-07-03] MEDS: Liraglutide [Victoza 2-Pak] 1.2 MG SQ SCH (08:20)
[2020-07-03] MEDS: Zinc Acetate [Galzin] 50 MG PO SCH ×2 (08:20→21:51)
[2020-07-03] MEDS: Metoprolol XL (24 HR) Succ 25 MG TAB.ER.24H PO SCH ×2 (08:25→21:52)
[2020-07-03] MEDS: *HR* Digoxin 0.125 MG TABLET PO SCH (08:25)
[2020-07-03] MEDS: Cholecalciferol (D-3) 1,000 UNIT (25MCG) TABLET PO SCH (08:26)
[2020-07-03] MEDS: Magnesium Oxide 400 MG TABLET PO SCH ×2 (08:26→21:52)
[2020-07-03] MEDS: DilTIAZem CD (24hr) 120 MG CAP.ER.24H PO SCH ×2 (08:26→21:52)
[2020-07-03] MEDS: polyethylene glycoL 3350 17 GM POWD.PACK PO SCH (08:26)
[2020-07-03] MEDS: Famotidine 20 MG TABLET PO SCH ×2 (08:26→21:52)
[2020-07-03] MEDS: allopurinoL 100 MG TABLET PO SCH ×2 (08:26→21:52)
[2020-07-03] MEDS: Budesonide/Formoterol 80/4.5 1 PUFF INH IH SCH ×2 (11:17→22:26)
[2020-07-03] MEDS ORDERED: *HR* Warfarin 1 MG TABLET PO ONE (18:00)
[2020-07-03 21:00] LABS: Bilirubin,Urine Negative (Negative); Blood,Urine Negative (Negative); Clarity,Urine Clear (Clear); Color,Urine Yellow (Yellow); Glucose,Urine (UA) Normal (Normal); Ketones,Urine Negative (Negative); Leukocyte Esterase,Urine Negative (Negative); Nitrite,Urine Negative (Negative); Protein,Urine Negative (Neg-Trace); Urobilinogen,Urine Normal (Normal)
[2020-07-03] MEDS: Insulin DETEMIR 100 UNIT/ML X5UNITS SQ SCH (21:53)
[2020-07-04] MEDS: Ipratropium/Albuterol Neb 3 ML IH SCH ×4 (03:43→21:27)
[2020-07-04 03:53] LABS: INR 2.4; Prothrombin Time 26.9 Seconds (9.4-12.1)
[2020-07-04] MEDS: Insulin LISPRO 300 UNITS/3 ML VIAL SQ SCH ×4 (08:07→20:51)
[2020-07-04] MEDS: allopurinoL 100 MG TABLET PO SCH ×2 (09:05→20:51)
[2020-07-04] MEDS: Metoprolol XL (24 HR) Succ 25 MG TAB.ER.24H PO SCH ×2 (09:05→20:50)
[2020-07-04] MEDS: Cholecalciferol (D-3) 1,000 UNIT (25MCG) TABLET PO SCH (09:06)
[2020-07-04] MEDS: DilTIAZem CD (24hr) 120 MG CAP.ER.24H PO SCH ×2 (09:06→20:50)
[2020-07-04] MEDS: Magnesium Oxide 400 MG TABLET PO SCH ×2 (09:06→20:50)
[2020-07-04] MEDS: *HR* Digoxin 0.125 MG TABLET PO SCH (09:06)
[2020-07-04] MEDS: Famotidine 20 MG TABLET PO SCH ×2 (09:06→20:50)
[2020-07-04] MEDS: Liraglutide [Victoza 2-Pak] 1.2 MG SQ SCH (09:08)
[2020-07-04] MEDS: Zinc Acetate [Galzin] 50 MG PO SCH ×2 (09:08→20:51)
[2020-07-04] MEDS: polyethylene glycoL 3350 17 GM POWD.PACK PO SCH (09:09)
[2020-07-04] MEDS: Budesonide/Formoterol 80/4.5 1 PUFF INH IH SCH ×2 (09:55→21:25)
[2020-07-04] MEDS: Acetaminophen 325 MG TABLET PO PRN ×2 (12:21→18:23)
[2020-07-04] MEDS ORDERED: *HR* Warfarin 2 MG TABLET PO ONE (18:00)
[2020-07-04] MEDS: Insulin DETEMIR 100 UNIT/ML X5UNITS SQ SCH (20:54)
[2020-07-05] MEDS: Ipratropium/Albuterol Neb 3 ML IH SCH ×4 (04:18→21:45)
[2020-07-05] MEDS: Acetaminophen 325 MG TABLET PO PRN ×3 (04:18→20:12)
[2020-07-05 05:03] LABS: INR 2.2; Prothrombin Time 25.3 Seconds (9.4-12.1)
[2020-07-05] MEDS: DilTIAZem CD (24hr) 120 MG CAP.ER.24H PO SCH ×2 (09:14→20:12)
[2020-07-05] MEDS: Cholecalciferol (D-3) 1,000 UNIT (25MCG) TABLET PO SCH (09:14)
[2020-07-05] MEDS: *HR* Digoxin 0.125 MG TABLET PO SCH (09:14)
[2020-07-05] MEDS: allopurinoL 100 MG TABLET PO SCH ×2 (09:14→20:11)
[2020-07-05] MEDS: Famotidine 20 MG TABLET PO SCH ×2 (09:14→20:12)
[2020-07-05] MEDS: Magnesium Oxide 400 MG TABLET PO SCH (09:15)
[2020-07-05] MEDS: Liraglutide [Victoza 2-Pak] 1.2 MG SQ SCH (09:15)
[2020-07-05] MEDS: Zinc Acetate [Galzin] 50 MG PO SCH (09:15)
[2020-07-05] MEDS: Metoprolol XL (24 HR) Succ 25 MG TAB.ER.24H PO SCH ×2 (09:15→20:11)
[2020-07-05] MEDS: polyethylene glycoL 3350 17 GM POWD.PACK PO SCH (09:15)
[2020-07-05] MEDS: Insulin LISPRO 300 UNITS/3 ML VIAL SQ SCH ×3 (09:15→16:23)
[2020-07-05] MEDS: Budesonide/Formoterol 80/4.5 1 PUFF INH IH SCH ×2 (10:06→21:45)
[2020-07-05] MEDS ORDERED: *HR* Warfarin 4 MG TABLET PO ONE (18:00)
[2020-07-05] MEDS: Insulin DETEMIR 100 UNIT/ML X5UNITS SQ SCH (20:25)
[2020-07-06] MEDS: Magnesium Oxide 400 MG TABLET PO SCH ×3 (01:04→21:49)
[2020-07-06] MEDS: Zinc Acetate [Galzin] 50 MG PO SCH ×3 (01:06→21:58)
[2020-07-06] MEDS: Insulin LISPRO 300 UNITS/3 ML VIAL SQ SCH ×5 (01:07→21:58)
[2020-07-06] MEDS: Ipratropium/Albuterol Neb 3 ML IH SCH ×4 (04:16→21:57)
[2020-07-06] MEDS: Acetaminophen 325 MG TABLET PO PRN ×2 (05:12→21:49)
[2020-07-06 05:14] LABS: INR 2.5; Prothrombin Time 28.4 Seconds (9.4-12.1)
[2020-07-06] MEDS: polyethylene glycoL 3350 17 GM POWD.PACK PO SCH (07:55)
[2020-07-06] MEDS: Cholecalciferol (D-3) 1,000 UNIT (25MCG) TABLET PO SCH (07:55)
[2020-07-06] MEDS: Famotidine 20 MG TABLET PO SCH ×2 (07:55→21:48)
[2020-07-06] MEDS: allopurinoL 100 MG TABLET PO SCH ×2 (07:55→21:50)
[2020-07-06] MEDS: DilTIAZem CD (24hr) 120 MG CAP.ER.24H PO SCH ×2 (07:56→21:50)
[2020-07-06] MEDS: *HR* Digoxin 0.125 MG TABLET PO SCH (07:56)
[2020-07-06] MEDS: Metoprolol XL (24 HR) Succ 25 MG TAB.ER.24H PO SCH ×2 (07:56→21:50)
[2020-07-06] MEDS: Liraglutide [Victoza 2-Pak] 1.2 MG SQ SCH (07:57)
[2020-07-06] MEDS: Budesonide/Formoterol 80/4.5 1 PUFF INH IH SCH ×2 (10:06→21:57)
[2020-07-06 12:37] LABS: Hematocrit 35.9 % (35.3-44.9); Hemoglobin 11.2 g/dL (11.5-15.4); Mean Corpuscular HGB Conc 31.2 g/dL (31.6-35.5); Mean Corpuscular Hemoglobin 29.9 pg (28.0-33.3); Mean Corpuscular Volume 95.7 fL (83.0-100.0); Mean Platelet Volume 9.2 fL (9.4-12.4); Platelet Count 281 K/mcL (140-400); Red Blood Count 3.75 M/mcL (3.82-4.97); Red Cell Distribution Width 15.9 % (11.5-14.5); White Blood Count 11.2 K/mcL (4.3-11.1)
[2020-07-06 12:50] LABS: BUN/Creatinine Ratio 44 (6-26); Blood Urea Nitrogen 26 mg/dL (8-23); Carbon Dioxide 31 mEq/L (23-29); Chloride 99 mEq/L (98-107); Glucose 152 mg/dL (70-105); Potassium 4.3 mEq/L (3.5-5.1); Sodium 135 mEq/L (136-145); eGFR For African Americans > 60 (> 60); eGFR For Non-African Americans > 60 (> 60)
[2020-07-06 12:51] LABS: Calcium 9.1 mg/dL (8.6-10.3); Osmolality,Calculated 288 (280-300)
[2020-07-06 17:09] LABS: Bilirubin,Urine Negative (Negative); Blood,Urine Negative (Negative); Clarity,Urine Clear (Clear); Color,Urine Yellow (Yellow); Glucose,Urine (UA) Normal (Normal); Ketones,Urine Negative (Negative); Leukocyte Esterase,Urine Negative (Negative); Nitrite,Urine Negative (Negative); Protein,Urine Negative (Neg-Trace); Specific Gravity,Urine 1.015 (1.010-1.025); Urobilinogen,Urine Normal (Normal)
[2020-07-06] MEDS ORDERED: *HR* Warfarin 3 MG TABLET PO ONE (18:00)
[2020-07-06] MEDS: Furosemide 20 MG TABLET PO SCH (19:20)
[2020-07-06] MEDS: Insulin DETEMIR 100 UNIT/ML X5UNITS SQ SCH (21:53)
[2020-07-07] MEDS: Ipratropium/Albuterol Neb 3 ML IH SCH ×4 (03:52→22:00)
[2020-07-07 05:18] LABS: Hematocrit 34.6 % (35.3-44.9); Hemoglobin 10.6 g/dL (11.5-15.4); Mean Corpuscular HGB Conc 30.6 g/dL (31.6-35.5); Mean Corpuscular Hemoglobin 29.4 pg (28.0-33.3); Mean Corpuscular Volume 95.8 fL (83.0-100.0); Mean Platelet Volume 9.1 fL (9.4-12.4); Platelet Count 256 K/mcL (140-400); Red Blood Count 3.61 M/mcL (3.82-4.97); Red Cell Distribution Width 15.9 % (11.5-14.5); White Blood Count 9.5 K/mcL (4.3-11.1)
[2020-07-07 05:20] LABS: INR 2.4; Prothrombin Time 27.6 Seconds (9.4-12.1)
[2020-07-07 05:35] LABS: Alanine Aminotransferase 22 Units/L (7-52); Albumin 2.8 g/dL (3.5-5.7); Albumin/Globulin Ratio 1.2 (1.1-2.2); Alkaline Phosphatase 101 Units/L (34-104); Aspartate Amino Transferase 21 Units/L (13-39); BUN/Creatinine Ratio 38 (6-26); Bilirubin,Total 0.3 mg/dL (0.3-1.0); Blood Urea Nitrogen 27 mg/dL (8-23); Carbon Dioxide 32 mEq/L (23-29); Chloride 99 mEq/L (98-107); Globulin 2.3 g/dL (2.4-3.5); Glucose 155 mg/dL (70-105); Magnesium 1.5 mg/dL (1.6-2.6); Osmolality,Calculated 288 (280-300); Potassium 4.2 mEq/L (3.5-5.1); Sodium 135 mEq/L (136-145); Total Protein 5.1 g/dL (6.4-8.9); eGFR For African Americans > 60 (> 60); eGFR For Non-African Americans > 60 (> 60)
[2020-07-07] MEDS: polyethylene glycoL 3350 17 GM POWD.PACK PO SCH (08:27)
[2020-07-07] MEDS: Famotidine 20 MG TABLET PO SCH ×2 (08:28→22:38)
[2020-07-07] MEDS: Metoprolol XL (24 HR) Succ 25 MG TAB.ER.24H PO SCH ×2 (08:28→22:38)
[2020-07-07] MEDS: *HR* Digoxin 0.125 MG TABLET PO SCH (08:28)
[2020-07-07] MEDS: Zinc Acetate [Galzin] 50 MG PO SCH ×2 (08:28→22:38)
[2020-07-07] MEDS: Insulin LISPRO 300 UNITS/3 ML VIAL SQ SCH ×5 (08:28→22:31)
[2020-07-07] MEDS: Furosemide 20 MG TABLET PO SCH (08:28)
[2020-07-07] MEDS: Magnesium Oxide 400 MG TABLET PO SCH ×2 (08:28→22:37)
[2020-07-07] MEDS: Liraglutide [Victoza 2-Pak] 1.2 MG SQ SCH (08:28)
[2020-07-07] MEDS: allopurinoL 100 MG TABLET PO SCH ×2 (08:28→22:38)
[2020-07-07] MEDS: Cholecalciferol (D-3) 1,000 UNIT (25MCG) TABLET PO SCH (08:28)
[2020-07-07] MEDS: DilTIAZem CD (24hr) 120 MG CAP.ER.24H PO SCH ×2 (08:28→22:37)
[2020-07-07] MEDS ORDERED: Magnesium Oxide 400 MG TABLET PO STA (08:59)
[2020-07-07] MEDS: Budesonide/Formoterol 80/4.5 1 PUFF INH IH SCH ×2 (09:57→22:00)
[2020-07-07 11:15] LABS: VBG HCO3 30 mEq/L (21-27); VBG PCO2 50 mmHg (41-51); VBG PH 7.38 pH Units (7.32-7.42); VBG PO2 45 mmHg (25-50)
[2020-07-07] MEDS ORDERED: *HR* Warfarin 4 MG TABLET PO ONE (18:00)
[2020-07-07] MEDS: Acetaminophen 325 MG TABLET PO PRN (22:37)
[2020-07-07] MEDS: Insulin DETEMIR 100 UNIT/ML X5UNITS SQ SCH (22:40)
[2020-07-08] MEDS: Ipratropium/Albuterol Neb 3 ML IH SCH ×4 (03:57→21:53)
[2020-07-08 05:35] LABS: INR 2.7; Prothrombin Time 30.7 Seconds (9.4-12.1)
[2020-07-08] MEDS: Cholecalciferol (D-3) 1,000 UNIT (25MCG) TABLET PO SCH (09:03)
[2020-07-08] MEDS: *HR* Digoxin 0.125 MG TABLET PO SCH (09:03)
[2020-07-08] MEDS: Metoprolol XL (24 HR) Succ 25 MG TAB.ER.24H PO SCH ×2 (09:03→21:05)
[2020-07-08] MEDS: Furosemide 20 MG TABLET PO SCH (09:03)
[2020-07-08] MEDS: Magnesium Oxide 400 MG TABLET PO SCH ×2 (09:03→21:05)
[2020-07-08] MEDS: Famotidine 20 MG TABLET PO SCH ×2 (09:03→21:05)
[2020-07-08] MEDS: allopurinoL 100 MG TABLET PO SCH ×2 (09:03→21:06)
[2020-07-08] MEDS: DilTIAZem CD (24hr) 120 MG CAP.ER.24H PO SCH ×2 (09:03→21:05)
[2020-07-08] MEDS: Zinc Acetate [Galzin] 50 MG PO SCH ×2 (09:04→21:11)
[2020-07-08] MEDS: polyethylene glycoL 3350 17 GM POWD.PACK PO SCH (09:04)
[2020-07-08] MEDS: Liraglutide [Victoza 2-Pak] 1.2 MG SQ SCH (09:04)
[2020-07-08] MEDS: Insulin LISPRO 300 UNITS/3 ML VIAL SQ SCH ×4 (09:04→21:11)
[2020-07-08] MEDS: Budesonide/Formoterol 80/4.5 1 PUFF INH IH SCH ×2 (09:51→21:52)
[2020-07-08] MEDS ORDERED: *HR* Warfarin 3 MG TABLET PO ONE (18:00)
[2020-07-08] MEDS: Acetaminophen 325 MG TABLET PO PRN (21:06)
[2020-07-08] MEDS: Insulin DETEMIR 100 UNIT/ML X5UNITS SQ SCH (21:08)
[2020-07-09] MEDS: Ipratropium/Albuterol Neb 3 ML IH SCH ×4 (06:04→22:21)
[2020-07-09 06:24] LABS: INR 2.8; Prothrombin Time 32.1 Seconds (9.4-12.1)
[2020-07-09] MEDS: Insulin LISPRO 300 UNITS/3 ML VIAL SQ SCH ×4 (08:38→20:31)
[2020-07-09] MEDS: allopurinoL 100 MG TABLET PO SCH ×2 (08:39→20:31)
[2020-07-09] MEDS: Cholecalciferol (D-3) 1,000 UNIT (25MCG) TABLET PO SCH (08:39)
[2020-07-09] MEDS: DilTIAZem CD (24hr) 120 MG CAP.ER.24H PO SCH ×2 (08:39→20:31)
[2020-07-09] MEDS: *HR* Digoxin 0.125 MG TABLET PO SCH (08:39)
[2020-07-09] MEDS: Famotidine 20 MG TABLET PO SCH ×2 (08:39→20:31)
[2020-07-09] MEDS: Metoprolol XL (24 HR) Succ 25 MG TAB.ER.24H PO SCH ×2 (08:39→20:31)
[2020-07-09] MEDS: Furosemide 20 MG TABLET PO SCH (08:39)
[2020-07-09] MEDS: polyethylene glycoL 3350 17 GM POWD.PACK PO SCH (08:40)
[2020-07-09] MEDS: Liraglutide [Victoza 2-Pak] 1.2 MG SQ SCH (08:40)
[2020-07-09] MEDS: Magnesium Oxide 400 MG TABLET PO SCH ×2 (08:40→20:31)
[2020-07-09] MEDS: Zinc Acetate [Galzin] 50 MG PO SCH ×2 (08:41→23:03)
[2020-07-09] MEDS: Acetaminophen 325 MG TABLET PO PRN ×2 (08:57→17:12)
[2020-07-09] MEDS: Budesonide/Formoterol 80/4.5 1 PUFF INH IH SCH ×2 (10:04→22:21)
[2020-07-09] MEDS ORDERED: *HR* Warfarin 3 MG TABLET PO ONE (18:00)
[2020-07-09] MEDS: Insulin DETEMIR 100 UNIT/ML X5UNITS SQ SCH (20:31)
[2020-07-10] MEDS: Ipratropium/Albuterol Neb 3 ML IH SCH ×3 (05:34→15:00)
[2020-07-10 05:52] LABS: INR 2.8; Prothrombin Time 31.4 Seconds (9.4-12.1)
[2020-07-10 07:22] VITALS: BP 119/64
[2020-07-10] MEDS: Budesonide/Formoterol 80/4.5 1 PUFF INH IH SCH (09:25)
[2020-07-10] MEDS: Insulin LISPRO 300 UNITS/3 ML VIAL SQ SCH ×3 (09:33→17:36)
[2020-07-10] MEDS: Famotidine 20 MG TABLET PO SCH (09:33)
[2020-07-10] MEDS: Cholecalciferol (D-3) 1,000 UNIT (25MCG) TABLET PO SCH (09:33)
[2020-07-10] MEDS: Liraglutide [Victoza 2-Pak] 1.2 MG SQ SCH (09:34)
[2020-07-10] MEDS: Metoprolol XL (24 HR) Succ 25 MG TAB.ER.24H PO SCH (09:34)
[2020-07-10] MEDS: Furosemide 20 MG TABLET PO SCH (09:34)
[2020-07-10] MEDS: *HR* Digoxin 0.125 MG TABLET PO SCH (09:34)
[2020-07-10] MEDS: DilTIAZem CD (24hr) 120 MG CAP.ER.24H PO SCH (09:34)
[2020-07-10] MEDS: allopurinoL 100 MG TABLET PO SCH (09:34)
[2020-07-10] MEDS: Zinc Acetate [Galzin] 50 MG PO SCH (09:34)
[2020-07-10] MEDS: polyethylene glycoL 3350 17 GM POWD.PACK PO SCH (09:34)
[2020-07-10] MEDS: Magnesium Oxide 400 MG TABLET PO SCH (09:34)
[2020-07-10] MEDS: Acetaminophen 325 MG TABLET PO PRN (09:47)
[2020-07-10 16:36] LABS: Adenovirus Not Detected (Not Detect); Coronavirus 229E Not Detected (Not Detect); Coronavirus HKU1 Not Detected (Not Detect); Coronavirus NL63 Not Detected (Not Detect); Coronavirus OC43 Not Detected (Not Detect)
[2020-07-10 16:37] LABS: Bordetella Pertussis Not Detected (Not Detect); Chlamydophila pneumoniae Not Detected (Not Detect); Human Metapneumovirus Not Detected (Not Detect); Human Rhinovirus/Enterovirus Not Detected (Not Detect); Influenza A Subtype 2009 H1 Not Detected (Not Detect); Influenza B Not Detected (Not Detect); Mycoplasma pneumoniae Not Detected (Not Detect); Parainfluenza Virus 1 Not Detected (Not Detect); Parainfluenza Virus 2 Not Detected (Not Detect); Parainfluenza Virus 3 Not Detected (Not Detect); Parainfluenza Virus 4 Not Detected (Not Detect); Respiratory Syncytial Virus Not Detected (Not Detect)
[2020-07-10] MEDS ORDERED: *HR* Warfarin 3 MG TABLET PO ONE (18:00)
== END 2020-07-10 18:43 | DRG 602 ==
LOC: INPGRE 15:05
PROVIDERS: ADMIT Family Medicine; ATTEND Family Medicine